=== PATIENT | male | born 1995 | race Caucasian/White ===

== ENCOUNTER 2017-08-13 19:50 | Emergency (ER) | payer OTHER ==
--- NOTE | 2017-08-13 20:03 | PDOC ---
History of Present Illness - General History Source: Patient Exam Limitations: No Limitations - History of Present Illness Initial Comments: 08/13/17 20:10 The patient is a 21 year old male with history of PRK corrective eye surgery who presents to the ED complaining of foreign body sensation in his eyes that began just prior to arrival. The patient reports he was attempting to replace shattered glass in a rear view mirror when he began to experience his eye discomfort. He states "I think some glass shattered into my eyes". On evaluation , he complains of "throbbing" sensation in his right eye. No left eye discomfort. He states his pain is similar to previous tension headaches he experiences when stressed. He denies any gross visual changes. <Betsy Lugo - Last Filed: 08/13/17 20:28> <Moni Lennon - Last Filed: 08/14/17 01:50> - General Chief Complaint: Foreign Body (FB) Stated Complaint: GLASS SHATTERED ONTO EYES Time Seen by Provider: 08/13/17 20:02 Past History <Betsy Lugo - Last Filed: 08/13/17 20:28> - Past Medical History Asthma: Yes - Immunization History Td Vaccination: Yes Immunization Up to Date: No - Suicide/Smoking/Psychosocial Hx Smoking Status: No Smoking History: Current some day smoker Have you smoked in the past 12 months: Yes Number of Cigarettes Smoked Daily: 1 'Breaking Loose' booklet given: 04/22/16 Hx Alcohol Use: No Drug/Substance Use Hx: No Substance Use Type: None <Moni Lennon - Last Filed: 08/14/17 01:50> - Past Medical History Allergies/Adverse Reactions: Allergies Allergy/AdvReac Type Severity Reaction Status Date / Time CATS/DOGS/DUST Allergy Uncoded 02/06/16 17:17 Home Medications: Ambulatory Orders NK [No Known Home Medication] 08/13/17 Review of Systems - Review of Systems Able to Perform ROS?: Yes Comments:: 08/13/17 20:12 All systems are reviewed and negative except as noted in the HPI. <Betsy Lugo - Last Filed: 08/13/17 20:28> *Physical Exam - Physical Exam Comments: 08/13/17 20:29 GENERAL: Awake, alert, and fully oriented, in no acute distress HEAD: No signs of trauma EYES: PERRLA, EOMI, sclera anicteric, conjunctiva clear. Fundoscope exam is normal with no signs of corneal abrasions. Anterior chambers are normal bilaterally. No scleral edema or injury. ENT: Auricles normal inspection, hearing grossly normal, nares patent, oropharynx clear without exudates. Moist mucosa NEUROLOGICAL: Cranial nerves II through XII grossly intact. Normal speech, normal gait SKIN: Warm, Dry, normal turgor, no rashes or lesions noted. <Betsy Lugo - Last Filed: 08/13/17 20:28> Medical Decision Making - Medical Decision Making Documentation has been prepared under my direction and personally reviewed by me in its entirety. I attest that this documented accurately reflects all work, treatment, procedures and medical decision making performed by me. As noted above, this 21-year-old man presents with a history of broken glass from [facility] possibly contacting his eyes shortly before presentation; patient has had right sided headache . No change in vision, tearing from his eyes. The patient admits to having headaches especially when he is " stressed " or worried about something. Exam as noted above. Fluoroscein exam was performed on each eye after one drop of tetracaine ophthalmic solution and placed in each eye. No evidence of corneal abrasion/ foreign body in either eye. Patient will be discharged with instructions to use "artificial tears" solution as needed; he should return here if he has severe pain or change in vision. 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 He should be seen by his shell core and molding supervisor if he has persistent discomfort <Moni Lennon - Last Filed: 08/14/17 01:50> *DC/Admit/Observation/Transfer - Attestations Scribe Attestion: 08/13/17 20:14 Documentation prepared by Betsy Lugo, acting as medical advisor for Moni Lennon MD. <Betsy Lugo - Last Filed: 08/13/17 20:28> <Moni Lennon - Last Filed: 08/14/17 01:50> Diagnosis at time of Disposition: Normal eye exam, Tension headache - Discharge Dispostion Disposition: HOME Condition at time of disposition: Stable - Referrals Referrals: Rox Llanos [Primary Care Provider] - - Patient Instructions Printed Discharge Instructions: Tension Headache Additional Instructions: There was no indication of corneal damage or foreign body in eye on fluorescein exam You can use artificial tear eyedrops as needed Ibuprofen/naproxen/acetaminophen as needed for headache Return to ER if you develop severe eye pain/worsening headache/vision changes Follow-up with your shell core and molding supervisor as scheduled for postoperative check within 5 days - Post Discharge Activity
[2017-08-13] MEDS ORDERED: TETRACAINE 0.5% OPHTH SOLN 2 ML BOTTLE ONE (20:10)
[2017-08-13 20:11] VITALS: BP 119/61; PULSE 65; TEMP 97.9; BMI 23.7
[2017-08-13] MEDS ORDERED: FLUORESCEIN NA 1 EA STRIP ONE (20:11)
== END 2017-08-13 20:35 | disposition home or self-care (01) ==
LOC: FER 19:50
DX: G44.209 Tension-type headache, unspecified, not intractable (principal); Z04.3 Encounter for examination and observation following other accident; F17.210 Nicotine dependence, cigarettes, uncomplicated; J45.909 Unspecified asthma, uncomplicated; X58.XXXA Exposure to other specified factors, initial encounter; Y93.89 Activity, other specified; Y92.9 Unspecified place or not applicable
CPT/HCPCS: 99281-25

== ENCOUNTER 2018-07-11 11:59 | Emergency (ER) | payer OTHER ==
[2018-07-11 12:05] VITALS: BP 124/76; PULSE 78; TEMP 98; BMI 25.7
[2018-07-11] MEDS ORDERED: ACETAMINOPHEN 500 MG TABLET (FP) PO ONE (12:17)
--- NOTE | 2018-07-11 12:27 | PDOC ---
History of Present Illness - General Chief Complaint: Pain, Acute Stated Complaint: right ankle pain Time Seen by Provider: 07/11/18 12:03 - History of Present Illness Initial Comments: 07/11/18 12:23 22 M with no PMH presents to ED with R ankle pain and swelling. Pt states he stepped into a pothole yesterday, inverting his R ankle. Kimble a "pop". Denies falling afterwards. Has been able to bear weight and ambulate since but with some pain. Denies injury or pain anywhere else. Past History - Past Medical History Allergies/Adverse Reactions: Allergies Allergy/AdvReac Type Severity Reaction Status Date / Time CATS/DOGS/DUST Allergy Unknown Uncoded 07/11/18 12:00 Home Medications: Ambulatory Orders NK [No Known Home Medication] 08/13/17 Asthma: Yes CVA: No COPD: No - Immunization History Td Vaccination: Yes Immunization Up to Date: No - Suicide/Smoking/Psychosocial Hx Smoking Status: No Smoking History: Never smoked Have you smoked in the past 12 months: Yes Number of Cigarettes Smoked Daily: 1 If you are a former smoker, when did you quit?: 2017 'Breaking Loose' booklet given: 04/22/16 Hx Alcohol Use: No Drug/Substance Use Hx: No Substance Use Type: None Review of Systems - Review of Systems Comments:: 07/11/18 12:26 "GENERAL/CONSTITUTIONAL: No fever or chills. No weakness. HEAD, EYES, EARS, NOSE AND THROAT: No change in vision. No ear pain or discharge. No sore throat. CARDIOVASCULAR: No chest pain, no shortness of breath, no loss of consciousness RESPIRATORY: No cough, wheezing, or hemoptysis. GASTROINTESTINAL: No nausea, vomiting, diarrhea or constipation. GENITOURINARY: No dysuria, frequency, or change in urination. MUSCULOSKELETAL: + R ankle pain. No neck or back pain. SKIN: No rash NEUROLOGIC: No vertigo, no change in strength/sensation. ENDOCRINE: No increased thirst. No abnormal weight change. HEMATOLOGIC/LYMPHATIC: No anemia, easy bleeding, or history of blood clots. ALLERGIC/IMMUNOLOGIC: No hives or skin allergy. *Physical Exam - Vital Signs Last Vital Signs Temp Pulse Resp BP Pulse Ox 98 F 78 16 124/76 98 07/11/18 12:00 07/11/18 12:00 07/11/18 12:00 07/11/18 12:00 07/11/18 12:00 - Physical Exam Comments: 07/11/18 12:26 "GENERAL: Awake, alert, and fully oriented, in no acute distress. HEAD: No signs of trauma EYES: PERRLA, EOMI, sclera anicteric, conjunctiva clear ENT: Auricles normal inspection, hearing grossly normal, nares patent, oropharynx clear without exudates. Moist mucosa NECK: Nontender, no stepoffs, Normal ROM, supple, no lymphadenopathy, JVD, or masses LUNGS: Breath sounds equal, clear to auscultation bilaterally. No wheezes, and no crackles HEART: Regular rate and rhythm, normal S1 and S2, no murmurs, rubs or gallops ABDOMEN: Soft, nontender, normoactive bowel sounds. No guarding, no rebound. No masses EXTREMITIES: + R ankle effusion, tenderness over R malleolus NEUROLOGICAL: Cranial nerves II through XII intact. 5/5 strength and sensation in all extremities, Normal speech, normal gait, normal cerebellar function SKIN: Warm, Dry, normal turgor, no rashes or lesions noted. Moderate Sedation - Procedure Monitoring Vital Signs: Procedure Monitoring Vital Signs Temperature 98 F 07/11/18 12:00 Pulse Rate 78 07/11/18 12:00 Respiratory Rate 16 07/11/18 12:00 Blood Pressure 124/76 07/11/18 12:00 O2 Sat by Pulse Oximetry (%) 98 07/11/18 12:00 ED Treatment Course - RADIOLOGY Radiology Studies Ordered: Category Date Time Status ANKLE-RIGHT [RAD] Stat Radiology 07/11/18 12:13 Ordered Medical Decision Making - Medical Decision Making 07/11/18 12:27 22 M with R ankle pain and swelling after stepping in pothole and inverting foot. - XR R ankle - Tylenol 07/11/18 12:35 XR negative Pt placed in air-cast. Will DC with ortho f/u Pt is well appearing, with normal vitals. Clinically stable for DC at this time. I discussed the physical exam findings, ancillary test results and final diagnoses with the patient. I answered all of the patient's questions. The patient was satisfied with the care received and felt comfortable with the discharge plan and treatment plan. The patient agrees to follow up with the primary care physician within 24-72 hours. *DC/Admit/Observation/Transfer Diagnosis at time of Disposition: Right ankle sprain - Discharge Dispostion Disposition: HOME Condition at time of disposition: Stable - Referrals Referrals: Constantine Cisneros MD [Staff Physician] - - Patient Instructions Printed Discharge Instructions: DI for Ankle Sprain Additional Instructions: Your X ray did not show any fractures. This does not however rule out ligamentous injury. Keep your foot elevated and avoid bearing weight until the swelling and pain have resolved. If you continue to have pain after 3 days, make an appointment with an orthopedic surgeon for further evaluation. You may need a MRI to further evaluate the cause of your pain. - Post Discharge Activity - Attestations Physician Attestion: 07/11/18 12:38 I, Dr. Constantine Flores MD, attest that this document has been prepared under my direction and personally reviewed by me in its entirety. I further attest, that it accurately reflects all work, treatment, procedures and medical decision -making performed by me.
[2018-07-11] MEDS ORDERED: ACETAMINOPHEN 500 MG TABLET (FP) ONE (12:28)
== END 2018-07-11 12:49 | disposition home or self-care (01) ==
LOC: FER 11:59
PROC: 2W3QX1Z Immobilization of Right Lower Leg using Splint (ICD-10-PCS; principal; 2018-07-11)
DX: S93.401A Sprain of unspecified ligament of right ankle, initial encounter (principal); X50.0XXA Overexertion from strenuous movement or load, initial encounter; Y93.01 Activity, walking, marching and hiking; Y92.89 Other specified places as the place of occurrence of the external cause
CPT/HCPCS: 73610-TC-RT-FY; 99282-25

== ENCOUNTER 2019-03-31 15:33 | Emergency (ER) | payer OTHER ==
[2019-03-31 15:39] VITALS: BP 140/80; PULSE 74; TEMP 97.6; BMI 27.1
--- NOTE | 2019-03-31 15:57 | PDOC ---
History of Present Illness - General Chief Complaint: Headache Stated Complaint: HEADACHE, VOMITING, NAUSEA Time Seen by Provider: 03/31/19 15:56 - History of Present Illness Initial Comments: 03/31/19 16:49 Pt presents to the ED complaining of diffuse frontal headache similar to his previous migraines. Also complains of mild L eye pain and a brief episode of blurry vision yesterday. Patient denies visual complaints or eye pain at present. Denies fever or vomiting, but does complain of nausea. States that he has mild photophobia. Pain is gradual onset, intermittent and moderate in severity. Current pain intensity is 4/10. Past History - Past Medical History Allergies/Adverse Reactions: Allergies Allergy/AdvReac Type Severity Reaction Status Date / Time No Known Drug Allergies Allergy Verified 03/31/19 15:35 CATS/DOGS/DUST Allergy Unknown Uncoded 03/31/19 15:35 Home Medications: Ambulatory Orders NK [No Known Home Medication] 08/13/17 Asthma: Yes CVA: No COPD: No Other medical history: migraine truong - Immunization History Td Vaccination: Yes Immunization Up to Date: No - Psycho Social/Smoking Cessation Hx Smoking Status: No Smoking History: Current every day smoker Have you smoked in the past 12 months: Yes Number of Cigarettes Smoked Daily: 2 If you are a former smoker, when did you quit?: 2017 Information on smoking cessation initiated: Yes 'Breaking Loose' booklet given: 04/22/16 Hx Alcohol Use: No Drug/Substance Use Hx: No Substance Use Type: None Review of Systems - Review of Systems Able to Perform ROS?: Yes Is the patient limited Martiniquais proficient: No Constitutional: No: Symptoms Reported, See HPI, Chills, Diaphoresis, Fever, Loss of Appetite, Malaise, Night Sweats, Weakness, Weight Stable, Unintentional Wgt. Loss, Unexplained wgt Loss, Other HEENTM: Yes: Eye Pain. No: Symptoms Reported, See HPI, Blurred Vision, Tearing , Recent change in vision, Double Vision, Cataracts, Ear Pain, Ocular Prothesis , Ear Discharge, Nose Pain, Nose Congestion, Tinnitus, Nose Bleeding, Hearing Loss, Throat Pain, Throat Swelling, Mouth Pain, Dental Problems, Difficulty Swallowing, Mouth Swelling, Other Respiratory: No: Symptoms reported, See HPI, Cough, Orthopnea, Shortness of Breath, SOB with Exertion, SOB at Rest, Stridor, Wheezing, Productive cough, Hemoptysis, Other Cardiac (ROS): No: Symptoms Reported, See HPI, Chest Pain, Edema, Irregular Heart Rate, Lightheadedness, Palpitations, Syncope, Chest Tightness, Other ABD/GI: Yes: Nausea. No: Symptoms Reported, See HPI, Abdominal Distended, Abd. Pain w/ defecation, Blood Streaked Bowels, Constipated, Diarrhea, Difficulty Swallowing, Poor Appetite, Poor Fluid Intake, Rectal Bleeding, Vomiting, Indigestion, Abdominal cramping, Tarry Stools, Other : No: Symptoms Reported, See HPI, Burning, Dysuria, Discharge, Frequency, Flank Pain, Hematuria, Incontinence, Pain, Urgency, Testicular Mass, Testicular Swelling, Lesions, Testicular Pain, Other Musculoskeletal: No: Symptoms Reported, See HPI, Back Pain, Gout, Joint Pain, Joint Swelling, Muscle Pain, Muscle Weakness, Neck Pain, Joint Stiffness, Other Integumentary: No: Symptoms Reported, See HPI, Bruising, Change in Color, Change in Hair/Nails, Dryness, Erythema, Flushing, Lesions, Lumps, Pallor, Pruritus, Rash, Sweating, Other Neurological: Yes: Headache. No: Symptoms reported, See HPI, Numbness, Paresthesia, Pre-Existing Deficit, Seizure, Tingling, Tremors, Weakness, Unsteady Gait, Ataxia, Dizziness, Other *Physical Exam - Vital Signs Last Vital Signs Temp Pulse Resp BP Pulse Ox 97.6 F 74 18 140/80 5 L 03/31/19 15:33 03/31/19 15:33 03/31/19 15:33 03/31/19 15:33 03/31/19 15:33 - Physical Exam Comments: 03/31/19 17:02 gen: alert, NAD HEENT: normocephalic, atraumatic. No sinus tenderness. Cv: rrr no m/r/g Pulm: CTA b/l Abdomen: soft, non tender, non distended, without guarding or rebound Neuro: aao x3. CN grossly intact. Medical Decision Making - Medical Decision Making 03/31/19 17:15 pt presents to the ED complaining of moderate headache and eye pain. History of migraines, reports that this pain is similar. Denies eye pain or visual complaints. Will treat with reglan and fluids and reassess. 03/31/19 17:39 patient feels improved after reglan and benadryl. Will discharge home. Discharge - Discharge Information Problems reviewed: Yes Clinical Impression/Diagnosis: Migraine Qualifiers: Migraine type: without aura Status migrainosus presence: without status migrainosus Intractability: not intractable Qualified Code(s): G43.009 - Migraine without aura, not intractable, without status migrainosus Condition: Good Disposition: HOME - Admission No - Additional Discharge Information Prescription Drug Monitoring Program (I-STOP) results: I-STOP not reviewed - Follow up/Referral - Patient Discharge Instructions Patient Printed Discharge Instructions: DI for Headache Additional Instructions: you came to the ED because you had a headache. this may have been caused by a migraine. We gave you medications to treat your headache, and you felt better, so we are sending you home. You should return to the ED for severe headache, severe nausea and vomiting, visual changes, seizures, passing out or confusion, other new or worsening symptoms. Make sure that you follow up with your primary care doctor. - Post Discharge Activity
[2019-03-31] MEDS ORDERED: METOCLOPRAMIDE HCL INJECTION 10 MG/2 ML VIAL IVPUSH ONE (16:11)
[2019-03-31] MEDS ORDERED: ACETAMINOPHEN 1000 MG/100 ML VIAL (NON FORMULARY) IVPB ONE (16:12)
[2019-03-31] MEDS ORDERED: METOCLOPRAMIDE HCL INJECTION 10 MG/2 ML VIAL ONE (16:16)
[2019-03-31] MEDS ORDERED: ACETAMINOPHEN INJECTION 100 ML IVPB ONE (16:16)
== END 2019-03-31 17:50 | disposition home or self-care (01) ==
LOC: FER 15:33
PROC: 3E033NZ Introduction of Analgesics, Hypnotics, Sedatives into Peripheral Vein, Percutaneous Approach (ICD-10-PCS; principal; 2019-03-31)
PROC: 3E033GC Introduction of Other Therapeutic Substance into Peripheral Vein, Percutaneous Approach (ICD-10-PCS; 2019-03-31)
DX: G43.009 Migraine without aura, not intractable, without status migrainosus (principal); J30.81 Allergic rhinitis due to animal (cat) (dog) hair and dander; F17.210 Nicotine dependence, cigarettes, uncomplicated; J45.909 Unspecified asthma, uncomplicated; Z91.09 Other allergy status, other than to drugs and biological substances
CPT/HCPCS: 99282-25; J0131